=== PATIENT | female | born 1955 | race American Indian/Alaskan Native ===

== ENCOUNTER 2020-01-31 15:33 | Emergency (ER) | payer MEDICAID | END 2020-01-31 16:45 | disposition left against medical advice (07) | LOC: ED 15:33 | DX: R11.2 Nausea with vomiting, unspecified (principal); R53.1 Weakness; R53.83 Other fatigue; Z53.21 Procedure and treatment not carried out due to patient leaving prior to being seen by health care provider ==

== ENCOUNTER 2020-02-12 16:58 | Emergency (ER) | payer MEDICARE ==
[2020-02-12 20:16] VITALS: BP 138/63
[2020-02-12 20:35] LABS: Hematocrit 22.3 % (30.3-42.9); Hemoglobin 7.4 gm/dl (10.1-14.3); Mean Corpuscular HGB Conc 33 % (30-34); Mean Corpuscular Volume 89 fl (79-97); Platelet Count 202 K/mm3 (140-440); Red Blood Count 2.52 M/mm3 (3.65-5.03); Red Cell Distribution Width 14.4 % (13.2-15.2)
--- NOTE | 2020-02-12 20:47 | Emergency Department Report ---
ED Recheck HPI - General Chief Complaint: Recheck/Abnormal Lab/Rx Stated Complaint: SENT FROM DR/BLOOD TRANSFUSION Time Seen by Provider: 02/12/20 20:00 Source: patient Mode of arrival: Ambulatory Limitations: No Limitations - History of Present Illness Initial Comments: 65-year-old female, history of ESRD, Crohn's disease, presents to ED for evaluation of hemoglobin. Patient states she does hemodialysis at home. Patient states last week she had malfunctioning of her machine on 2 occasions in which she could not return her blood. Patient states she believes she lost approximately 90 cc. Patient states afterward she has some generalized weakness and was told to come to the ER for evaluation. Patient states she came to the ER but left prior to being seen. Patient then followed up with her physician who checked her blood work and gave her to shots to boost her red blood cells. Patient states she received the results of her blood work today which showed a hemoglobin of 6.1. She was advised to come to the emergency room for recheck and possible blood transfusion. Patient reports history of anemia states she has received a transfusion in the past. Patient reports since receiving the injections she has been feeling much better, denies any weakness or lightheadedness at this time. MD Complaint: abnormal lab -: week(s) (1) Returns Today for: CBOAL Description of Abnormal Result: Hb 6.1 Symptoms Since Prior Visit: improved Context: called for abnorm lab res Associated Symptoms: denies: chest pain, shortness of breath, malaise Treatments Prior to Arrival: other (given injections in MD's office) - Related Data Allergies Allergy/AdvReac Type Severity Reaction Status Date / Time aspirin Allergy Unknown Verified 02/12/20 17:30 celecoxib [From Celebrex] Allergy Unknown Verified 02/12/20 17:30 ibuprofen Allergy Unknown Verified 02/12/20 17:30 Penicillins Allergy Unknown Verified 02/12/20 17:30 iv constrast Allergy Unknown Uncoded 02/12/20 17:30 ED Review of Systems ROS: Stated complaint: SENT FROM /BLOOD TRANSFUSION Other details as noted in HPI Comment: All other systems reviewed and negative Constitutional: denies: weakness Respiratory: denies: shortness of breath Cardiovascular: denies: chest pain Gastrointestinal: denies: melena, hematochezia ED Past Medical Hx - Past Medical History Previous Medical History?: Yes Hx Diabetes: Yes Hx Renal Disease: Yes Hx Sickle Cell Disease: Yes (trait) Additional medical history: 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 Absent: respiratory distress - Cardiovascular Cardiovascular Exam: Present: regular rate, normal rhythm - GI/Abdominal GI/Abdominal exam: Present: soft, other (ileostomy in place). Absent: distended, tenderness - Extremities Exam Extremities exam: Present: normal inspection - Neurological Exam Neurological exam: Present: alert, oriented X3 - Psychiatric Psychiatric exam: Present: normal affect, normal mood - Skin Skin exam: Present: warm, dry, intact, normal color ED Course Vital Signs 02/12/20 02/12/20 17:30 20:13 Temperature 99.2 F Pulse Rate 84 78 Respiratory 12 14 Rate Blood Pressure 116/61 Blood Pressure 138/63 [Left] O2 Sat by Pulse 100 100 Oximetry ED Recheck MDM - Medical Decision Making Hb 7.4. Pt asymptomatic. Does not meet criteria for transfusion. Pt advised to f/u with her physician. Will discharge at this time. Critical care attestation.: If time is entered above; I have spent that time in minutes in the direct care of this critically ill patient, excluding procedure time. ED Disposition Clinical Impression: Anemia Disposition: DC-01 TO HOME OR SELFCARE Is pt being admited?: No Condition: Stable Instructions: Anemia (ED) Additional Instructions: Your hemoglobin is 7.4 today. Referrals: DONAVAN DE LEON MD [Primary Care Provider] - 3-5 Days Time of Disposition: 20:49
[2020-02-12 20:48] LABS: Albumin 4.4 g/dL (3.9-5); Calcium 7.4 mg/dL (8.4-10.2)
== END 2020-02-12 21:03 | disposition home or self-care (01) ==
LOC: ED 16:58
DX: D64.9 Anemia, unspecified (principal); E11.9 Type 2 diabetes mellitus without complications; D57.1 Sickle-cell disease without crisis; Z87.448 Personal history of other diseases of urinary system; Z98.890 Other specified postprocedural states; Z88.6 Allergy status to analgesic agent; Z88.0 Allergy status to penicillin; Z88.8 Allergy status to other drugs, medicaments and biological substances
CPT/HCPCS: 36415; 80053; 85027; 86850; 86900; 86901